=== PATIENT | female | born 1995 | race African-American/Black ===

== ENCOUNTER 2023-12-23 12:52 | Emergency (ER) | payer MEDICAID, OTHER ==
[~2023-12-23] VITALS: Ht 167.6 cm; Wt 107.8 kg
[2023-12-23 14:01] VITALS: BP 114/76; PULSE 76; RESP 18; TEMP 97.8; O2SAT 96
[2023-12-23] MEDS: HYDROcodone-ACET 5/325MG TAB PO ONE (14:20)
[2023-12-23] MEDS: KETOROLAC TROMETH 60MG/2ML VIAL IM ONE (14:21)
[2023-12-23] MEDS ORDERED: IBUP-1456 PO (14:35)
[2023-12-23] MEDS ORDERED: BACL10TA PO (14:35)
== END 2023-12-23 15:15 | disposition home or self-care (01) ==
LOC: ER 12:52
DX: M54.41 Lumbago with sciatica, right side (principal); E66.01 Morbid (severe) obesity due to excess calories; Z68.38 Body mass index [BMI] 38.0-38.9, adult
CPT/HCPCS: 96372; 99283; J1885